=== PATIENT | female | born 1945 | race Caucasian/White ===

== ENCOUNTER → 2016-08-29 | Outpatient (CLI) | payer MEDICARE ==
[~2016-08-29] MED LIST: ASPI-515 PO; HYDR25TA6 PO; LISI-170 PO; LISI1TAB3 PO; LORA-445 PO; METO25TA35 PO; PRED10TA PO; SIMV20TA3 PO
== END | disposition home or self-care (01) ==
LOC: PETCFH 08:20
PROVIDERS: ATTEND Internal Medicine
DX: E05.90 Thyrotoxicosis, unspecified without thyrotoxic crisis or storm (principal)
CPT/HCPCS: 78013; A9516

== ENCOUNTER 2016-12-27 09:24 | Day surgery (SDC) | payer MEDICARE ==
[2016-12-26 09:24] VITALS: BP 116/76
[2016-12-26 10:06] LABS: HEMATOCRIT 42.1 % (34.6-47.8); HEMOGLOBIN 14.3 g/dL (11.7-16.4); WHITE BLOOD COUNT 5.8 x10^3/uL (3.4-10)
[2016-12-26 10:16] LABS: BLOOD UREA NITROGEN 20 mg/dL (7-18)
[~2016-12-27] VITALS: Ht 154.9 cm; Wt 40.5 kg
[2016-12-27] MEDS ORDERED: SODIUM CHLORIDE 0.9% 1,000 ML IV SCH (10:05)
[2016-12-27] MEDS ORDERED: HYDR12.53 PO (10:21)
[2016-12-27] MEDS ORDERED: LISI-170 PO (10:21)
[2016-12-27] MEDS ORDERED: AMLO5TAB4 PO (10:21)
[2016-12-27] MEDS ORDERED: ZOLPIDEM 5MG TABLET PO PRN (10:30)
[2016-12-27] MEDS ORDERED: BISACODYL 10 MG SUPP PR PRN (10:30)
[2016-12-27] MEDS ORDERED: ACETAMINOPHEN 325 MG TABLET PO PRN (10:30)
[2016-12-27] MEDS ORDERED: ONDANSETRON 2MG/ML, 2ML IVPush PRN (10:30)
[2016-12-27] MEDS ORDERED: ASPIRIN 325 MG TABLET EC PO ONE (10:30)
[2016-12-27] MEDS ORDERED: BISACODYL 5 MG EC TABLET PO PRN (10:30)
[2016-12-27] MEDS ORDERED: FENTANYL PF 100 MCG/2ML ONE (13:35)
[2016-12-27] MEDS ORDERED: LIDOCAINE 2%, 20ML ONE (13:35)
[2016-12-27] MEDS ORDERED: MIDAZOLAM 1 MG/ML, 5ML ONE (13:35)
[2016-12-27 18:55] VITALS: BP 125/70
== END 2016-12-27 20:45 | disposition home or self-care (01) ==
LOC: CACL 09:24 → 5SO 15:55 → CACL 20:45
PROVIDERS: ATTEND Internal Medicine Cardiovascular Disease
DX: I20.0 Unstable angina (principal); I10 Essential (primary) hypertension; J44.9 Chronic obstructive pulmonary disease, unspecified; Z72.89 Other problems related to lifestyle; Z87.891 Personal history of nicotine dependence
CPT/HCPCS: 36415; 71020; 80048; 83880; 85025; 85610; 85730; 93458; 99156; 99157; C1760; C1894; J2250; J3010; J3490; Q9967

== ENCOUNTER 2017-02-21 10:25 | Emergency (ER) | payer MEDICARE ==
[~2017-02-21] VITALS: Ht 154.9 cm; Wt 43.0 kg
[~2017-02-21 10:25] MED LIST changes: +AMLO5TAB4 PO; +HYDR12.53 PO
[2017-02-21 10:36] VITALS: BP 134/80
== END 2017-02-21 11:28 | disposition home or self-care (01) ==
LOC: ED 11:22
DX: T63.391A Toxic effect of venom of other spider, accidental (unintentional), initial encounter (principal); I10 Essential (primary) hypertension; J44.9 Chronic obstructive pulmonary disease, unspecified; Z88.5 Allergy status to narcotic agent; Z88.2 Allergy status to sulfonamides; Y92.098 Other place in other non-institutional residence as the place of occurrence of the external cause
CPT/HCPCS: 29125

== ENCOUNTER → 2017-03-07 | Outpatient (CLI) | payer MEDICARE | END | disposition home or self-care (01) | LOC: CFH 09:00 | PROVIDERS: ATTEND Physician Assistant | DX: M41.86 Other forms of scoliosis, lumbar region (principal); M51.37 Other intervertebral disc degeneration, lumbosacral region; M51.27 Other intervertebral disc displacement, lumbosacral region; M25.78 Osteophyte, vertebrae; M48.07 Spinal stenosis, lumbosacral region | CPT/HCPCS: 72148 ==

== ENCOUNTER → 2017-05-10 | Outpatient (CLI) | payer MEDICARE | END | disposition home or self-care (01) | LOC: CFH 09:23 | PROVIDERS: ATTEND Registered Nurse | DX: R91.8 Other nonspecific abnormal finding of lung field (principal); J84.10 Pulmonary fibrosis, unspecified; I25.10 Atherosclerotic heart disease of native coronary artery without angina pectoris; J44.9 Chronic obstructive pulmonary disease, unspecified | CPT/HCPCS: 71250 ==

== ENCOUNTER → 2017-10-29 | Outpatient (CLI) | payer MEDICARE ==
[~2017-10-29] MED LIST changes: +NAPR250T6 PO; +SERT25TA3 PO
== END ==
LOC: CFH 07:51
PROVIDERS: ATTEND Psychiatry & Neurology Neurology
DX: I67.82 Cerebral ischemia (principal); R90.82 White matter disease, unspecified
CPT/HCPCS: 70551

== ENCOUNTER → 2018-03-06 | Outpatient (CLI) | payer MEDICARE | END | disposition home or self-care (01) | LOC: CFH 10:41 | PROVIDERS: ATTEND Internal Medicine Critical Care Medicine | DX: J44.9 Chronic obstructive pulmonary disease, unspecified (principal); I31.3 Pericardial effusion (noninflammatory); I25.10 Atherosclerotic heart disease of native coronary artery without angina pectoris | CPT/HCPCS: 71250 ==

== ENCOUNTER 2018-03-23 17:09 | Emergency (ER) | payer MEDICARE ==
[~2018-03-23] VITALS: Ht 154.9 cm; Wt 41.5 kg
[2018-03-23] MEDS ORDERED: LIDOCAINE 2%, 20ML INFIL ONE (17:30)
[2018-03-23] MEDS ORDERED: LIDOCAINE-MPF 1%, 5ML ONE (17:56)
[2018-03-23] MEDS ORDERED: PLEASE ENTER HEIGHT AND WEIGHT MC SCH (18:00)
[2018-03-23 19:45] VITALS: BP 90/50
== END 2018-03-23 19:48 | disposition home or self-care (01) ==
LOC: ED 17:13
DX: S01.511A Laceration without foreign body of lip, initial encounter (principal); S01.111A Laceration without foreign body of right eyelid and periocular area, initial encounter; S00.83XA Contusion of other part of head, initial encounter; I10 Essential (primary) hypertension; W19.XXXA Unspecified fall, initial encounter; Y93.89 Activity, other specified; Y99.8 Other external cause status; Y92.009 Unspecified place in unspecified non-institutional (private) residence as the place of occurrence of the external cause
CPT/HCPCS: 12051; 70450

== ENCOUNTER 2019-01-21 14:01 | Inpatient (IN) | payer MEDICARE ==
[~2019-01-21] VITALS: Ht 154.9 cm; Wt 43.4 kg
[~2019-01-21 14:01] MED LIST changes: +HYDR12.517 PO; -HYDR12.53 PO; +LISI1TAB23 PO; -LISI1TAB3 PO
[2019-01-21] MEDS ORDERED: LORazepam 2 MG/ML, 1ML ONE (14:16)
[2019-01-21] MEDS ORDERED: DIAZEPAM 5 MG/ML, 2ML ONE (14:17)
--- NOTE | 2019-01-21 14:21 | NUR ---
communicable disease specialist: pharmacy called for 3% NaCl. MD Diaz, ADILIA Carpenter & ADILIA Ac V at pt bedside
--- NOTE | 2019-01-21 14:23 | NUR ---
Late entry 1423: Code Neuro paged at this time
--- NOTE | 2019-01-21 14:29 | NUR ---
2 IV's established, labs drawn. pt on face mask.
[2019-01-21] MEDS ORDERED: SODIUM CHLORIDE 3% 500 ML IV PRN (14:30)
[2019-01-21] MEDS ORDERED: LEVETIRACETAM 1,000 MG in SODIUM CHLORIDE 0.9% 100 ML IV ONE (14:30)
--- NOTE | 2019-01-21 14:30 | NUR ---
pt to ct for code neuro, Pt havign acitve seizure. prn medication at bedside. pt on monitor and NR mask for trasport, marlin calvin tele sup at [facility]. family aggreabel to paln of care.
--- NOTE | 2019-01-21 14:33 | NUR ---
heat treat supervisor: pt to CT via gwen on monitor w/ 2 RN at bedside at this time.
[2019-01-21 14:38] LABS: BASOPHILS # (AUTO) 0.05 x10^3/uL (0-0.1); BASOPHILS % (AUTO) 0 % (0-1); EOSINOPHILS # (AUTO) 0.05 x10^3/uL (0-0.4); EOSINOPHILS % (AUTO) 1 % (1-7); LYMPHOCYTES # (AUTO) 2.09 x10^3/uL (1-3.4); LYMPHOCYTES % (AUTO) 20 % (22-44); MD NO; MEAN CORPUSCULAR HEMOGLOBIN 31.9 pg (27.0-34.8); MEAN CORPUSCULAR HGB CONC 32.8 g/dL (32.4-35.8); MEAN CORPUSCULAR VOLUME 97.1 fL (80-100); MEAN PLATELET VOLUME 8.4 fL (7.4-10.4); MONOCYTES # (AUTO) 0.81 x10^3/uL (0.2-0.8); MONOCYTES % (AUTO) 8 % (2-9); NEUTROPHILS # (AUTO) 7.51 x10^3/uL (1.8-6.8); NEUTROPHILS % (AUTO) 72 % (42-75); PLATELET COUNT 263 x10^3/uL (130-400); RED BLOOD COUNT 5.03 x10^6/uL (3.82-5.3)
--- NOTE | 2019-01-21 14:40 | NUR ---
pt returned from CT, and into trauma room 4, hooked up to property assessment monitor, family at bedside.
[2019-01-21 14:48] LABS: INTERNATIONAL NORMALIZED RATIO 0.95 (0.93-1.1)
--- NOTE | 2019-01-21 14:59 | NUR ---
PT KEEPRE 1 GM STARTED AND PT RESPONDING BETTER TO VERBAL COMMANDS. PT WITHDRAWS TO PAIN. PUPILS ARE FIXED. PT COINNECTED TO ALL MONITORS AND BEDSIDE REPORT TO GATO PAT.
--- NOTE | 2019-01-21 15:03 | NUR ---
LATE ENTRY: THIS IS A 74 Y/O FEMALE ARRIVING TO THE ED VIA PRIVATE VEHICLE WITH FAMILY S/P ODD BEHAVIRO AROUND 1300 WHEN PLAYING WITH GRANDCHILDREN. PT ON ARRIVAL WAS HAVING WHAT WAS REPORTED SPASM MOVEMENTS. PT TAKEN TO ROOM 1 AND USING C-SPIN PRECUATIONS TRANSFERED TO THE BED WITH [facility] PAT. PT PLACED ON SPO2, CARDIAC, AND BLOOD PRESSURE MONITORS. PT THEN STARTED HAVING SEIZURE WITNESSED BY THIS RN AND MD PINO AT BEDSIDE AND SECOND RN WAS CALL TO ACQUIRE JULIANA PINO WANTING VALIUM. PT HAD TWO PIVS PLACED IMMEDIATELY AND PLACED ON NR MASK FOR BLOW BY O2 WHEN RECOVERING FROM THE TONIC CLONIC SEIZURE LASTING ABOUT 1 MINUTE. SEIZURE PRECUATIONS WERE INTIATED ON ARRIVAL AND REMIANED IN PLACE. PT WAS TAKEN TO CT WITH 2 RN ESCORT AND MONITORS. PT THEN ON ARRIVAL BACK TO [place] [id number] AND THEN KEPPRA WAS STARTED AND THEN REPORT TO GATO Harrington RN. ONLY KEPPRA WAS GIVEN AND ATIVAN AND VALIUM HELD. PT GCS 10 AND ABLE TO PROTECT AIRWAY SO INTUBATION WAS HELD OFF. ETCO2 READING IN THE MID 30S
--- NOTE | 2019-01-21 15:05 | NUR ---
BEDSIDE REPORT FROM ADILIA MEHTA. CARE ASSUMED. FAMILY AT BEDSIDE
--- NOTE | 2019-01-21 15:29 | NUR ---
PT MORE AROUSABLE. ANSWERING W/ ONE WORD ANSWERS. OPENS EYES TO VOICE.
[2019-01-21] MEDS ORDERED: AMLO10TA8 PO (15:44)
[2019-01-21] MEDS ORDERED: MEMA5TAB PO (15:44)
[2019-01-21] MEDS ORDERED: SODI1TAB PO (15:44)
[2019-01-21] MEDS ORDERED: FLUT1BLS3 IH (15:44)
[2019-01-21 15:52] LABS: ANION GAP 10 mmol/L (5-15); CALCIUM 8.4 mg/dL (8.5-10.1); CHLORIDE 95 mmol/L (98-107); CREATININE 0.61 mg/dL (0.55-1.02)
--- NOTE | 2019-01-21 16:06 | NUR ---
C/O LAC IV PAIN. FLUSHES/DRAWS. PT/FAMILY EDUCATED ON KEEPING ARM STRAIGHT.
[2019-01-21] MEDS ORDERED: ONDANSETRON 2MG/ML, 2ML IVPush PRN (17:30)
[2019-01-21] MEDS ORDERED: hydrALAzine 20 MG/ML, 1ML IVPush PRN (17:30)
[2019-01-21] MEDS ORDERED: DOCUSATE 100 MG CAPSULE PO PRN (17:30)
[2019-01-21] MEDS ORDERED: CYCLOBENZAPRINE 10 MG TABLET PO PRN (17:30)
[2019-01-21] MEDS ORDERED: BUTALB/APAP/CAFFEINE 50MG/325MG/40MG PO PRN (17:30)
--- NOTE | 2019-01-21 17:54 | NUR ---
REPORT RECIEVED FROM GATO. PT MOVED TO ROOM 19. VS STABLE. FAMILY PRESENT
[2019-01-21 18:01] LABS: MICROSCOPIC NOT IND
[2019-01-21 18:11] LABS: CULTURE INDICATED? NO
--- NOTE | 2019-01-21 18:43 | NUR ---
RN assisted patient to bedside commode. Patient unsteady with one max assist
[2019-01-21] MEDS ORDERED: SODIUM CHLORIDE 3% 500 ML IV ONE (19:00)
[2019-01-21 20:00] VITALS: BP 123/80
[2019-01-21] MEDS: (Fluticasone/Umeclidin/Vilanter (Trelegy Ellipta 100-62.5-25 IH SCH (21:00)
[2019-01-21] MEDS: MEMANTINE 5MG TABLET PO SCH (22:16)
[2019-01-22 00:16] LABS: ANION GAP 8 mmol/L (5-15); CALCIUM 8.9 mg/dL (8.5-10.1); CHLORIDE 99 mmol/L (98-107); CREATININE 0.53 mg/dL (0.55-1.02)
[2019-01-22 00:56] VITALS: BP 120/72
[2019-01-22 06:06] LABS: ANION GAP 7 mmol/L (5-15); CALCIUM 8.3 mg/dL (8.5-10.1); CHLORIDE 103 mmol/L (98-107)
[2019-01-22 06:49] LABS: BASOPHILS # (AUTO) 0.04 x10^3/uL (0-0.1); BASOPHILS % (AUTO) 1 % (0-1); EOSINOPHILS % (AUTO) 2 % (1-7); LYMPHOCYTES # (AUTO) 0.64 x10^3/uL (1-3.4); LYMPHOCYTES % (AUTO) 11 % (22-44); MD NO; MEAN CORPUSCULAR HEMOGLOBIN 31.8 pg (27.0-34.8); MEAN CORPUSCULAR HGB CONC 33.9 g/dL (32.4-35.8); MEAN CORPUSCULAR VOLUME 93.8 fL (80-100); MEAN PLATELET VOLUME 7.7 fL (7.4-10.4); MONOCYTES # (AUTO) 0.58 x10^3/uL (0.2-0.8); MONOCYTES % (AUTO) 10 % (2-9); NEUTROPHILS # (AUTO) 4.44 x10^3/uL (1.8-6.8); NEUTROPHILS % (AUTO) 77 % (42-75); PLATELET COUNT 214 x10^3/uL (130-400); RED BLOOD COUNT 4.13 x10^6/uL (3.82-5.3); RED CELL DISTRIBUTION WIDTH 12.3 % (9.6-15.2)
[2019-01-22 07:43] VITALS: BP 167/74
[2019-01-22] MEDS ORDERED: LISINOPRIL 5 MG TABLET ONE (08:36)
[2019-01-22] MEDS: AMLODIPINE 10 MG TAB PO SCH (08:50)
[2019-01-22] MEDS: SODIUM CHLORIDE 1 GM TABLET PO SCH (08:50)
[2019-01-22] MEDS: MEMANTINE 5MG TABLET PO SCH ×2 (08:50→21:09)
[2019-01-22] MEDS: ASPIRIN 81 MG TABLET EC PO SCH (08:51)
[2019-01-22] MEDS ORDERED: LISINOPRIL 20 MG TABLET PO SCH (09:00)
[2019-01-22] MEDS: ACETAMINOPHEN 325 MG TABLET PO PRN ×2 (12:01→21:09)
[2019-01-22 14:12] VITALS: BP 158/71
[2019-01-22 17:29] LABS: ANION GAP 7 mmol/L (5-15); CALCIUM 8.6 mg/dL (8.5-10.1); CHLORIDE 101 mmol/L (98-107)
[2019-01-22 19:07] VITALS: BP 118/66
[2019-01-22] MEDS: (Fluticasone/Umeclidin/Vilanter (Trelegy Ellipta 100-62.5-25 IH SCH (20:22)
[2019-01-23 01:08] VITALS: BP 134/72
[2019-01-23 06:24] LABS: ANION GAP 9 mmol/L (5-15); CALCIUM 8.6 mg/dL (8.5-10.1); CHLORIDE 103 mmol/L (98-107)
[2019-01-23 06:26] LABS: BASOPHILS # (AUTO) 0.07 x10^3/uL (0-0.1); BASOPHILS % (AUTO) 2 % (0-1); EOSINOPHILS # (AUTO) 0.11 x10^3/uL (0-0.4); EOSINOPHILS % (AUTO) 2 % (1-7); LYMPHOCYTES # (AUTO) 0.77 x10^3/uL (1-3.4); LYMPHOCYTES % (AUTO) 17 % (22-44); MD NO; MEAN CORPUSCULAR HEMOGLOBIN 31.6 pg (27.0-34.8); MEAN CORPUSCULAR HGB CONC 33.6 g/dL (32.4-35.8); MEAN CORPUSCULAR VOLUME 93.8 fL (80-100); MEAN PLATELET VOLUME 7.9 fL (7.4-10.4); MONOCYTES # (AUTO) 0.51 x10^3/uL (0.2-0.8); MONOCYTES % (AUTO) 11 % (2-9); NEUTROPHILS # (AUTO) 3.17 x10^3/uL (1.8-6.8); NEUTROPHILS % (AUTO) 68 % (42-75); PLATELET COUNT 212 x10^3/uL (130-400); RED BLOOD COUNT 4.39 x10^6/uL (3.82-5.3); RED CELL DISTRIBUTION WIDTH 12.7 % (9.6-15.2)
[2019-01-23 07:35] VITALS: BP 145/78
[2019-01-23] MEDS: MEMANTINE 5MG TABLET PO SCH ×2 (07:57→20:25)
[2019-01-23] MEDS: ASPIRIN 81 MG TABLET EC PO SCH (07:57)
[2019-01-23] MEDS: SODIUM CHLORIDE 1 GM TABLET PO SCH ×2 (07:58→20:25)
[2019-01-23] MEDS: AMLODIPINE 10 MG TAB PO SCH (07:58)
[2019-01-23 10:06] VITALS: BP 110/63
[2019-01-23] MEDS: LISINOPRIL 5 MG TABLET PO SCH (10:07)
[2019-01-23 11:16] VITALS: BP 118/68
[2019-01-23 12:43] LABS: FREE T4 (FREE THYROXINE) 1.19 ng/dL (0.76-1.46)
[2019-01-23 13:58] VITALS: BP 149/77
[2019-01-23] MEDS: ACETAMINOPHEN 325 MG TABLET PO PRN (14:33)
[2019-01-23 18:41] VITALS: BP 149/77
[2019-01-23] MEDS: (Fluticasone/Umeclidin/Vilanter (Trelegy Ellipta 100-62.5-25 IH SCH (21:00)
[2019-01-24 00:35] VITALS: BP 150/75
[2019-01-24] MEDS: SODIUM CHLORIDE 1 GM TABLET PO SCH ×2 (08:39→21:06)
[2019-01-24] MEDS: ASPIRIN 81 MG TABLET EC PO SCH (08:39)
[2019-01-24] MEDS: MEMANTINE 5MG TABLET PO SCH ×2 (08:39→21:06)
[2019-01-24] MEDS: AMLODIPINE 10 MG TAB PO SCH (08:40)
[2019-01-24] MEDS: LISINOPRIL 5 MG TABLET PO SCH (08:42)
[2019-01-24 08:43] VITALS: BP 165/78
[2019-01-24 09:07] VITALS: BP 162/81
[2019-01-24 14:00] VITALS: BP 147/85
[2019-01-24 19:42] VITALS: BP 152/80
[2019-01-24] MEDS: (Fluticasone/Umeclidin/Vilanter (Trelegy Ellipta 100-62.5-25 IH SCH (21:00)
[2019-01-25 00:56] VITALS: BP 138/76
[2019-01-25 08:00] VITALS: BP 161/75
[2019-01-25] MEDS: AMLODIPINE 10 MG TAB PO SCH (08:09)
[2019-01-25] MEDS: MEMANTINE 5MG TABLET PO SCH (08:09)
[2019-01-25] MEDS: SODIUM CHLORIDE 1 GM TABLET PO SCH (08:09)
[2019-01-25] MEDS: ASPIRIN 81 MG TABLET EC PO SCH (08:09)
[2019-01-25] MEDS: LISINOPRIL 5 MG TABLET PO SCH (08:12)
[2019-01-25 13:51] VITALS: BP 149/72
== END 2019-01-25 18:18 | disposition home health service (06) | DRG 100 ==
LOC: ED 16:50 → EDIP 16:51 → ED 17:04 → 4EST 20:22
PROVIDERS: ADMIT Internal Medicine; ATTEND Internal Medicine
DX: G40.401 Other generalized epilepsy and epileptic syndromes, not intractable, with status epilepticus (principal); E43 Unspecified severe protein-calorie malnutrition; E87.1 Hypo-osmolality and hyponatremia; Z68.1 Body mass index [BMI] 19.9 or less, adult; E03.9 Hypothyroidism, unspecified; E78.5 Hyperlipidemia, unspecified; F03.90 Unspecified dementia, unspecified severity, without behavioral disturbance, psychotic disturbance, mood disturbance, and anxiety; F17.200 Nicotine dependence, unspecified, uncomplicated; I10 Essential (primary) hypertension; J44.9 Chronic obstructive pulmonary disease, unspecified; M19.072 Primary osteoarthritis, left ankle and foot; Z99.81 Dependence on supplemental oxygen; Z88.2 Allergy status to sulfonamides; Z88.5 Allergy status to narcotic agent; Z88.6 Allergy status to analgesic agent; R09.02 Hypoxemia
CPT/HCPCS: 36415; 70450; 70551; 80047; 80048; 81003; 82533; 82962; 83735; 84100; 84295; 84439; 84443; 84481; 85025; 85610; 85730; 93005; 95819; 99285; G0378; J1953